=== PATIENT | female | born 1945 | race American Indian/Alaskan Native ===

== ENCOUNTER 2018-10-18 11:49 | Emergency (ER) | payer MEDICARE ==
[2018-10-18 12:24] VITALS: BP 113/65
[2018-10-18 12:50] LABS: Basophils % (Auto) 0.3 % (0.0-1.8); Eosinophils % (Auto) 0.5 % (0.0-4.3); Hematocrit 34.4 % (30.3-42.9); Hemoglobin 11.5 gm/dl (10.1-14.3); Lymphocytes # (Auto) 1.2 K/mm3 (1.2-5.4); Lymphocytes % (Auto) 14.1 % (13.4-35.0); Mean Corpuscular HGB Conc 34 % (30-34); Mean Corpuscular Volume 94 fl (79-97); Monocytes # (Auto) 0.6 K/mm3 (0.0-0.8); Monocytes % (Auto) 7.2 % (0.0-7.3); Platelet Count 215 K/mm3 (140-440); Red Blood Count 3.65 M/mm3 (3.65-5.03); Red Cell Distribution Width 14.1 % (13.2-15.2)
[2018-10-18 13:01] LABS: INR 1.08 (0.87-1.13)
[2018-10-18 13:02] LABS: Partial Thromboplastin Time 26.9 Sec. (24.2-36.6)
[2018-10-18 13:03] LABS: Bilirubin,Urine NEG (Negative); Blood,Urine NEG (Negative); Color,Urine Straw (Yellow); Mucus,Urine FEW /HPF; Protein,Urine <15 mg/dL mg/dL (Negative); Urobilinogen,Urine < 2.0 mg/dL (<2.0)
[2018-10-18 13:13] LABS: Alanine Aminotransferase 14 units/L (7-56); BUN/Creatinine Ratio 24; Blood Urea Nitrogen 19 mg/dL (7-17); Calcium 9.5 mg/dL (8.4-10.2); Hemolysis Index 2
--- NOTE | 2018-10-18 13:21 | Emergency Department Report ---
ED General Adult HPI - General Chief complaint: Altered Mental Status Stated complaint: EVALUATED Time Seen by Provider: 10/18/18 12:10 Source: EMS Mode of arrival: Stretcher Limitations: Altered Mental Status - History of Present Illness Initial comments: This is a 72 year old female who states that she has been at [facility] for one week. She states that she was admitted there for memory loss. I have received some historical information indicating that she was indeed seen by Dr. Greenberg on 10/12/2018 she has past medical history of hypertension diabetes and bipolar disorder. She is found to be neurologically intact at that time. She was diagnosed with hypertension diabetes type 2 and a bipolar disorder area I see that she was placed on Aricept as well as maintenance medications. She was prior medically cleared at [facility] with the diagnosis of psychosis. Laboratory database at that time showed no significant abnormality on the available records. She had a CT of her chest for unknown indication no acute process was found. On 10/11/[address] of her head which also demonstrated no acute process. I do not see any other information indicative of an acute medical emergency such as abnormal vital signs or other signs of medical E compensation. Patient was sent here thus for evaluation of her medical status at this juncture . I do not find any other symptomatology just above the need for acute medical management other than her apparently chronically altered mental status, "slurred speech and unsteady gait". The patient herself is not voicing any specific complaint other than "I have problems with my memory". -: unknown ED Review of Systems ROS: Stated complaint: EVALUATED Other details as noted in HPI Constitutional: denies: chills, fever Eyes: denies: eye pain, eye discharge, vision change ENT: denies: ear pain, throat pain Respiratory: denies: cough, shortness of breath, wheezing Cardiovascular: denies: chest pain, palpitations Endocrine: no symptoms reported Gastrointestinal: denies: abdominal pain, nausea, diarrhea Genitourinary: denies: urgency, dysuria, discharge Musculoskeletal: denies: back pain, joint swelling, arthralgia Skin: denies: rash, lesions Neurological: denies: headache, weakness, paresthesias Psychiatric: denies: anxiety, depression Hematological/Lymphatic: denies: easy bleeding, easy bruising ED Past Medical Hx - Past Medical History Previous Medical History?: Yes Hx Hypertension: Yes Hx Diabetes: Yes Hx Dementia: Yes Additional medical history: bipolar - Surgical History Past Surgical History?: Yes Additional Surgical History: pt says she does not know - Social History Smoking Status: Smoker, Current Status Unknown Substance Use Type: None ED Physical Exam - General Limitations: Other (intermittently lethargic and poorly cooperative) General appearance: alert, in no apparent distress - Head Head exam: Present: atraumatic, normocephalic - Eye Eye exam: Present: normal appearance - ENT ENT exam: Present: mucous membranes moist - Neck Neck exam: Present: normal inspection. Absent: tenderness, meningismus - Respiratory Respiratory exam: Present: normal lung sounds bilaterally. Absent: respiratory distress - Cardiovascular Cardiovascular Exam: Present: regular rate, normal rhythm. Absent: systolic murmur, diastolic murmur, rubs, gallop - GI/Abdominal GI/Abdominal exam: Present: soft, normal bowel sounds. Absent: distended, tenderness, guarding, rebound, rigid - Extremities Exam Extremities exam: Present: normal inspection - Back Exam Back exam: Present: normal inspection - Neurological Exam Neurological exam: Present: alert, oriented X3, CN II-XII intact, other (NIH stroke score is 0). Absent: motor sensory deficit - Psychiatric Psychiatric exam: Present: normal mood, flat affect - Skin Skin exam: Present: warm, dry, intact, normal color. Absent: rash ED Course Vital Signs 10/18/18 12:23 Temperature 98.4 F Pulse Rate 70 Respiratory 20 Rate Blood Pressure 113/65 [Right] O2 Sat by Pulse 100 Oximetry - Reevaluation(s) Reevaluation #1: Patient's laboratory database essentially revealed no acute medical abnormalities. A urinalysis was negative. The laboratory equipment installer did not shortly tube 4 and ammonia. The patient refused another phlebotomy for that test. She refused CT imaging. She stated that she did not want to incur the expense of further diagnostic testing. The patient has ample mental capacity to refuse CT testing. Indeed, she had a CT approximately one week ago which showed nothing acute. I don't believe I should compel her to undergo any further testing that she is refusing at this time. Thus the patient is medically clear to return to [facility] for continued psychiatric treatment. If they so desire they can arrange for further outpatient evaluation. There is no evidence of an acute CVA found. 10/18/18 13:23 10/18/18 13:25 ED Medical Decision Making - Lab Data Result diagrams: 10/18/18 12:29 10/18/18 12:29 Critical care attestation.: If time is entered above; I have spent that time in minutes in the direct care of this critically ill patient, excluding procedure time. ED Disposition Clinical Impression: Encephalopathy chronic, Medical clearance for psychiatric admission Bipolar disorder Qualifiers: Active/Remission status: remission status unspecified Qualified Code(s): F31.9 - Bipolar disorder, unspecified Dementia Qualifiers: Dementia type: unspecified type Dementia behavioral disturbance: without behavioral disturbance Qualified Code(s): F03.90 - Unspecified dementia without behavioral disturbance Disposition: DC-01 TO HOME OR SELFCARE Is pt being admited?: No Does the pt Need Aspirin: No Condition: Stable Instructions: Dementia (ED) Additional Instructions: Further treatment at [facility] is appropriate. The patient is medically cleared to return. Time of Disposition: 13:26
[2018-10-18 13:27] LABS: Bilirubin,Direct < 0.2 mg/dL (0-0.2)
== END 2018-10-18 15:50 | disposition home or self-care (01) ==
LOC: ED 11:49
DX: F31.9 Bipolar disorder, unspecified (principal); F03.90 Unspecified dementia, unspecified severity, without behavioral disturbance, psychotic disturbance, mood disturbance, and anxiety; G93.40 Encephalopathy, unspecified; I10 Essential (primary) hypertension; F17.200 Nicotine dependence, unspecified, uncomplicated; Z98.890 Other specified postprocedural states
CPT/HCPCS: 36415; 80048; 80076; 81001; 82140; 82962; 83735; 83880; 85025; 85610; 85730; 99284